=== PATIENT | male | born 1990 ===

== ENCOUNTER → 2024-04-17 | Outpatient (CLI) | payer BC ==
[2024-04-17 15:54] LABS: Alanine Aminotransfer (ALT/SGP 32 U/L (12-78); Albumin, Blood 4.2 g/dL (3.4-5.0); Albumin/Globulin Ratio 1.7 (0.8-1.8); Alk Phos 61 U/L (50-136); Anion Gap 8 mmol/L (3-11); Aspartate Aminotrans (AST/SGOT 18 U/L (12-37); Bilirubin, Total 0.4 mg/dL (0.1-1.0); Blood Urea Nitrogen 14 mg/dL (8-24); Bun/Creatinine Ratio 12.8 (12.0-20.0); CHOL/HDL RATIO 2.4; CO2, Blood 29 mmol/L (21-32); Calcium, Blood 8.9 mg/dL (8.5-10.1); Chloride, Blood 107 mmol/L (98-108); Cholesterol 151 mg/dL (50-200); Creatinine, Blood 1.09 mg/dL (0.60-1.20); Globulin, Blood 2.5 g/dL (2.2-4.0); Glomerular Filtration Rate 91 (60-); Glucose, Blood 106 mg/dL (70-99); HDL Cholesterol 62 mg/dL (>39); LDL/HDL RATIO 1.2; Low Density Lipoprotein Chol 76 mg/dL (0-110); Potassium, Blood 4.4 mmol/L (3.5-5.5); Sodium, Blood 140 mmol/L (136-145); Total Protein, Blood 6.7 g/dL (6.4-8.2); Triglycerides 65 mg/dL (30-140); Very Low Density Lipoprot Chol 13 mg/dL (6-28)
[2024-04-19 20:04] LABS: APTIMA MEDIA TYPE Urine; C. TRACHOMATIS BY TMA Negative (Negative); N. GONORRHOEAE BY TMA Negative (Negative); SPECIMEN SOURCE Urine
== END | disposition home or self-care (01) ==
LOC: LAB SHORT 14:09 → LAB 14:09
PROVIDERS: Hospitalist
DX: Z11.3 Encounter for screening for infections with a predominantly sexual mode of transmission (principal); I10 Essential (primary) hypertension
CPT/HCPCS: 80053; 80061; 86592; 87491; 87591

== ENCOUNTER → 2025-09-03 | Outpatient (CLI) | payer BC ==
[2025-09-03 19:56] LABS: Anion Gap 8.0 mmol/L (3-11); Blood Urea Nitrogen 19.0 mg/dL (8-24); CO2, Blood 27.0 mmol/L (21-32); Calcium, Blood 8.7 mg/dL (8.5-10.1); Chloride, Blood 106.0 mmol/L (98-108); Creatinine, Blood 1.02 mg/dL (0.60-1.20); Glucose, Blood 102.0 mg/dL (70-99); Potassium, Blood 4.1 mmol/L (3.5-5.5); Sodium, Blood 137.0 mmol/L (136-145)
== END ==
LOC: LAB 17:54 → LAB SHORT 17:54
PROVIDERS: Hospitalist
DX: I10 Essential (primary) hypertension (principal)
CPT/HCPCS: 80048